=== PATIENT | female | born 1960 | race Caucasian/White ===

== ENCOUNTER 2019-01-21 20:06 | Emergency (ER) | payer MEDICAID ==
[~2019-01-21] VITALS: Ht 165.1 cm; Wt 68.2 kg
[~2019-01-21 20:06] MED LIST: NITR100C6 PO
[2019-01-21] MEDS ORDERED: normal saline 1000ML IV soln IVB ONE (20:30)
--- NOTE | 2019-01-21 20:30 | NUR ---
PT NEEDED TO URINATE AND ENCOURAGED TO USE BSC, SHE REPROTS SHE IS VERY STUBBORN AND INDEPENDANT AND WILL WALK TO BR USING WALKER AND REFUSED TO USE A BSC. REPORTS SHE USES A CANE AT HOME AND A WC AT TIMES (D/T MS). SHE REPORTED DIZZINESS WHEN AMBULATING. WAS AMBULATING WELL WITH SLOW BUT STEADY GAIT USING WALKER. UA COLLECTED, LABS DRAWN, IVF STARTED.
[2019-01-21 20:56] LABS: BASOPHILS # (AUTO) 0.1 X10'3 (0-0.2); EOSINOPHILS # (AUTO) 0.3 X10'3 (0-0.9); EOSINOPHILS % (AUTO) 2.6 % (0-6); HEMATOCRIT 43.3 % (35.0-45.0); HEMOGLOBIN 14.9 g/dl (12.0-16.0); LYMPHOCYTES # (AUTO) 3.3 X10'3 (1.1-4.8); LYMPHOCYTES % (AUTO) 34.4 % (21-51); MEAN CORPUSCULAR HEMOGLOBIN 33.3 PG (27.0-31.0); MEAN CORPUSCULAR HGB CONC 34.3 g/dL (33.0-36.5); MEAN CORPUSCULAR VOLUME 97.1 FL (78-98); MEAN PLATELET VOLUME 9.3 FL (7.4-10.4); MONOCYTES # (AUTO) 0.9 X10'3 (0-0.9); MONOCYTES % (AUTO) 8.8 % (2-12); NEUTROPHILS # (AUTO) 5.1 X10'3 (1.8-7.7); NEUTROPHILS % (AUTO) 53.2 % (42-75); PLATELET COUNT 234 X10'3 (140-440); RED BLOOD COUNT 4.46 X10'6 (4.20-5.60); RED CELL DISTRIBUTION WIDTH 13.2 % (11.5-14.5); WHITE BLOOD COUNT 9.6 X10'3 (4.5-11.0)
[2019-01-21 21:06] VITALS: BP 131/83
[2019-01-21 21:14] LABS: ALANINE AMINOTRANSFERASE 23 U/L (12-78); ALBUMIN 3.8 G/DL (3.4-5.0); ALBUMIN/GLOBULIN RATIO 1.1 (1.1-1.5); ALKALINE PHOSPHATASE 70 IU/L (46-116); ANION GAP 9 (8-16); ASPARTATE AMINO TRANSFERASE 14 U/L (10-37); BILIRUBIN,TOTAL 1.1 MG/DL (0.1-1.0); BLOOD UREA NITROGEN 4 MG/DL (7-18); BUN/CREATININE RATIO 4.7 (6.6-38.0); CALCIUM 8.7 MG/DL (8.5-10.1); CHLORIDE 101 MMOL/L (99-107); CREATININE 0.85 MG/DL (0.40-0.90); GLUCOSE 215 MG/DL (70-104); POTASSIUM 3.7 MMOL/L (3.5-5.1); SODIUM 136 MMOL/L (135-145); TOTAL CARBON DIOXIDE 26.3 MMOL/L (24-32); TOTAL PROTEIN 7.3 G/DL (6.4-8.2); eGFR 69 ML/MIN
--- NOTE | 2019-01-21 22:34 | NUR ---
pt refused to leave until er "figures out what's wrong". 3 nurses and er md have been in room to try to explain to pt that she has a rash, not emergent. pt very contrary, insists that it is not a skin condition. eventually pt ambulated on her own out of er with security standby. pt was offerred food, transportation and a [facility], refused all. states her daughter is coming to get rachelle
== END 2019-01-21 22:39 | disposition home or self-care (01) ==
LOC: ER 20:07
DX: R42 Dizziness and giddiness (principal); J45.909 Unspecified asthma, uncomplicated; E11.9 Type 2 diabetes mellitus without complications; Z90.49 Acquired absence of other specified parts of digestive tract; Z79.899 Other long term (current) drug therapy
CPT/HCPCS: 36415; 71045; 80053; 85025; 93005; 96360; 99284; J7030

== ENCOUNTER 2019-12-15 11:35 | Emergency (ER) | payer MEDICAID ==
[~2019-12-15] VITALS: Ht 152.4 cm; Wt 80.0 kg
[2019-12-15 13:38] LABS: ALANINE AMINOTRANSFERASE 28 U/L (12-78); ALBUMIN 3.9 G/DL (3.4-5.0); ALKALINE PHOSPHATASE 83 IU/L (46-116); ANION GAP 6 (8-16); ASPARTATE AMINO TRANSFERASE 15 U/L (10-37); BILIRUBIN,TOTAL 0.7 MG/DL (0.1-1.0); BLOOD UREA NITROGEN 17 MG/DL (7-18); CALCIUM 9.6 MG/DL (8.5-10.1); CHLORIDE 103 MMOL/L (99-107); CREATININE 0.74 MG/DL (0.40-0.90); GLUCOSE 185 MG/DL (70-104); POTASSIUM 4.2 MMOL/L (3.5-5.1); SODIUM 138 MMOL/L (135-145); TOTAL CARBON DIOXIDE 29.2 MMOL/L (24-32); TOTAL PROTEIN 7.9 G/DL (6.4-8.2); eGFR 81 ML/MIN
--- NOTE | 2019-12-15 13:40 | NUR ---
Pt ambulatory to the restroom to provide a urine specimen for testing.
--- NOTE | 2019-12-15 13:58 | NUR ---
Lab phoned to report the specimen for the PT, PTT and INR was clotted and needs to be recollected.
[2019-12-15 14:16] LABS: CLARITY,URINE TURBID (Clear); COLOR,URINE STRAW (Yellow); GLUCOSE, URINE NEGATIVE (Neg); KETONES,URINE NEGATIVE (Neg); LEUKOCYTE ESTERASE ,URINE SMALL (Neg); NITRITES, URINE POSITIVE (Neg); OCCULT BLOOD,URINE NEGATIVE (Neg); PROTEIN,URINE NEGATIVE (Neg); UROBILINOGEN,URINE 0.2 E.U/dL (0.2-1.0)
[2019-12-15 14:19] LABS: BASOPHILS # (AUTO) 0.1 X10'3 (0-0.2); BASOPHILS % (AUTO) 0.9 % (0-1); EOSINOPHILS # (AUTO) 0.2 X10'3 (0-0.9); EOSINOPHILS % (AUTO) 3.2 % (0-6); HEMATOCRIT 40.9 % (35.0-45.0); LYMPHOCYTES # (AUTO) 2.1 X10'3 (1.1-4.8); LYMPHOCYTES % (AUTO) 31.9 % (21-51); MEAN CORPUSCULAR HEMOGLOBIN 32.6 PG (27.0-31.0); MEAN CORPUSCULAR HGB CONC 34.1 g/dL (33.0-36.5); MEAN CORPUSCULAR VOLUME 95.7 FL (78-98); MEAN PLATELET VOLUME 8.5 FL (7.4-10.4); MONOCYTES # (AUTO) 0.4 X10'3 (0-0.9); MONOCYTES % (AUTO) 6.4 % (2-12); NEUTROPHILS # (AUTO) 3.8 X10'3 (1.8-7.7); NEUTROPHILS % (AUTO) 57.6 % (42-75); PLATELET COUNT 291 X10'3 (140-440); RED BLOOD COUNT 4.28 X10'6 (4.20-5.60); RED CELL DISTRIBUTION WIDTH 12.4 % (11.5-14.5); WHITE BLOOD COUNT 6.6 X10'3 (4.5-11.0)
[2019-12-15 14:20] LABS: UA COLLECTION TYPE CLN CATCH MIDSTREAM
[2019-12-15 14:26] LABS: MUCUS STRANDS NONE SEEN /LPF (Neg); SQUAMOUS EPITHELIAL CELL,UR MODERATE /LPF (FEW); TRANSITIONAL EPI CELLS,URINE FEW /HPF
[2019-12-15 14:27] LABS: BACTERIA,URINE 4+ /HPF (Neg); RBC,URINE 0-2 /HPF (0-2); WBC CLUMPS,URINE FEW /HPF (NEGATIVE); WBC,URINE 30-50 /HPF (0-4)
[2019-12-15 14:29] LABS: PARTIAL THROMBOPLASTIN TIME 28 SECONDS (22-32)
[2019-12-15 14:33] VITALS: BP 115/71
[2019-12-15] MEDS ORDERED: PHEN-824 PO (14:34)
[2019-12-15] MEDS ORDERED: NITR100C6 PO (14:34)
[2019-12-15] MEDS ORDERED: ketorolac tromethamine 15mg/ml inj. IM ONE (14:35)
== END 2019-12-15 15:15 | disposition home or self-care (01) ==
LOC: ER 11:36
DX: N39.0 Urinary tract infection, site not specified (principal); R51 Headache; R42 Dizziness and giddiness; R04.0 Epistaxis; J45.909 Unspecified asthma, uncomplicated; E11.9 Type 2 diabetes mellitus without complications; Z90.49 Acquired absence of other specified parts of digestive tract; Z72.89 Other problems related to lifestyle; Z79.899 Other long term (current) drug therapy; W18.39XA Other fall on same level, initial encounter; Y93.89 Activity, other specified; Y92.89 Other specified places as the place of occurrence of the external cause; Y99.8 Other external cause status
CPT/HCPCS: 36415; 70450; 80053; 81001; 85025; 85610; 85730; 87088; 96372; 99284; J1885; 87077; 87186

== ENCOUNTER 2022-01-23 10:01 | Inpatient (IN) | payer MEDICAID ==
[~2022-01-23] VITALS: Ht 154.9 cm; Wt 90.0 kg
[~2022-01-23 10:01] MED LIST changes: +PHEN-824 PO
[2022-01-23] MEDS ORDERED: normal saline 1000ML IV soln IV ONE (10:10)
--- NOTE | 2022-01-23 10:16 | NUR ---
PATIENT OFF TO CT SCAN
[2022-01-23 11:02] LABS: BASOPHILS # (AUTO) 0.1 X10'3 (0-0.2); BASOPHILS % (AUTO) 0.6 % (0-1); EOSINOPHILS # (AUTO) 0.2 X10'3 (0-0.9); EOSINOPHILS % (AUTO) 1.6 % (0-6); HEMATOCRIT 43.6 % (35.0-45.0); HEMOGLOBIN 14.7 g/dl (12.0-16.0); LYMPHOCYTES # (AUTO) 1.7 X10'3 (1.1-4.8); LYMPHOCYTES % (AUTO) 15.2 % (21-51); MEAN CORPUSCULAR HEMOGLOBIN 32.2 PG (27.0-31.0); MEAN CORPUSCULAR HGB CONC 33.8 g/dL (33.0-36.5); MEAN CORPUSCULAR VOLUME 95.2 FL (78-98); MEAN PLATELET VOLUME 9.7 FL (7.4-10.4); MONOCYTES % (AUTO) 8.8 % (2-12); NEUTROPHILS # (AUTO) 8.1 X10'3 (1.8-7.7); NEUTROPHILS % (AUTO) 73.8 % (42-75); PLATELET COUNT 230 X10'3 (140-440); RED BLOOD COUNT 4.58 X10'6 (4.20-5.60); RED CELL DISTRIBUTION WIDTH 13.1 % (11.5-14.5)
--- NOTE | 2022-01-23 11:02 | NUR ---
SPOKE TO PT'S DAUGHTER, SHEELA READ (DAUGHTER) - [phone] [address] [address]
[2022-01-23 11:33] LABS: ALANINE AMINOTRANSFERASE 19 U/L (12-78); ALBUMIN 3.2 G/DL (3.4-5.0); ALBUMIN/GLOBULIN RATIO 0.9 (1.1-1.5); ALKALINE PHOSPHATASE 109 IU/L (46-116); ANION GAP 12 (8-16); ASPARTATE AMINO TRANSFERASE 10 U/L (10-37); BILIRUBIN,TOTAL 0.8 MG/DL (0.1-1.0); BLOOD UREA NITROGEN 11 MG/DL (7-18); BUN/CREATININE RATIO 12.4 (6.6-38.0); CALCIUM 8.4 MG/DL (8.5-10.1); CHLORIDE 102 MMOL/L (99-107); CREATININE 0.89 MG/DL (0.40-0.90); GLUCOSE 338 MG/DL (70-104); MAGNESIUM 1.7 MG/DL (1.5-2.4); POTASSIUM 3.9 MMOL/L (3.5-5.1); SODIUM 139 MMOL/L (135-145); TOTAL CARBON DIOXIDE 24.8 MMOL/L (24-32); TOTAL PROTEIN 6.7 G/DL (6.4-8.2); eGFR 65 ML/MIN
[2022-01-23 11:35] LABS: ETHANOL < 0.010 GM/DL (0.0-0.010)
[2022-01-23] MEDS ORDERED: CefTRIAXone 2gm/D5W 50ml BAG 50 ML IV ONE (12:15)
[2022-01-23 12:52] LABS: CLARITY,URINE SLIGHTLY CLOUDY (Clear); COLOR,URINE YELLOW (Yellow); GLUCOSE, URINE 500 mg/dl (Neg); KETONES,URINE NEGATIVE (Neg); LEUKOCYTE ESTERASE ,URINE SMALL (Neg); NITRITES, URINE POSITIVE (Neg); OCCULT BLOOD,URINE NEGATIVE (Neg); PH,URINE 5.5 (4.8-8.0); PROTEIN,URINE NEGATIVE (Neg); UA COLLECTION TYPE NON-SPECIFIED; UROBILINOGEN,URINE 0.2 E.U/dL (0.2-1.0)
[2022-01-23 12:58] LABS: BACTERIA,URINE 4+ /HPF (Neg); RBC,URINE 0-2 /HPF (0-2); SQUAMOUS EPITHELIAL CELL,UR FEW /LPF (FEW)
[2022-01-23 13:23] LABS: URINE AMPHETAMINE SCREEN NEGATIVE (Neg); URINE BARBITUATE SCREEN NEGATIVE (Neg); URINE BENZODIAZEPINES SCREEN NEGATIVE (Neg); URINE CANNABINOID SCREEN POSITIVE (Neg); URINE COCAINE SCREEN NEGATIVE (Neg); URINE METHADONE SCREEN NEGATIVE (Neg); URINE PHENCYCLIDINE SCREEN NEGATIVE (Neg)
[2022-01-23] MEDS ORDERED: acetaminophen 325mg tablet PO PRN (13:45)
[2022-01-23] MEDS ORDERED: POTASSIUM BICARB 20meq eff tab 20 MEQ TABLET.EFF PO PRN ×2 (13:45)
[2022-01-23] MEDS ORDERED: ondansetron 4mg rapidly disintigrating tab PO PRN (13:45)
[2022-01-23] MEDS ORDERED: magnesium Cl slow-release 64mg tablet PO PRN (13:45)
[2022-01-23] MEDS ORDERED: normal saline 1000ml 1,000 ML IV SCH (13:45)
[2022-01-23] MEDS ORDERED: magnesium 4gm in 100ml NS 100 ML IV PRN (13:45)
[2022-01-23] MEDS ORDERED: magnesium 2GM in 50ml NS 50 ML IV PRN (13:45)
[2022-01-23] MEDS ORDERED: potassium CL 10mEq/100ml bag 100 ML IV PRN (13:45)
[2022-01-23] MEDS: CefTRIAXone/D5W-Rocephin 1gm 50 ML IV SCH (13:55)
[2022-01-23] MEDS ORDERED: ipratropium/albuterol 3ml nebule NEB ONE (14:15)
[2022-01-23] MEDS ORDERED: methylPREDNISolone sod succ 125mg/2ml vial IV ONE (14:15)
[2022-01-23] MEDS ORDERED: MELO-100 PO (15:10)
[2022-01-23] MEDS ORDERED: GLIM4TAB7 PO (15:10)
[2022-01-23] MEDS ORDERED: HYDR-3686 PO (15:10)
[2022-01-23] MEDS ORDERED: LORA10TA7 PO (15:10)
[2022-01-23] MEDS ORDERED: GABA300C PO (15:10)
[2022-01-23] MEDS ORDERED: LAMO100T PO (15:10)
[2022-01-23] MEDS ORDERED: ATOR40TA72 PO (15:10)
[2022-01-23] MEDS ORDERED: CITA40TA30 PO (15:10)
[2022-01-23] MEDS ORDERED: FLUT16SP26 BOTHNARES (15:10)
[2022-01-23] MEDS ORDERED: ASPI-1397 PO (15:10)
[2022-01-23 16:06] LABS: HEMOGLOBIN A1C 9.8 % (4.5-6.2)
--- NOTE | 2022-01-23 16:16 | NUR ---
PAGER ID: [phone] MESSAGE: Louise Moore [id number] A1C 9.8 would you like to start protocol? Nothing ordered. Do you want repeat lactic? last one 2.3. Not on fluids... Do you want on fluids? Please address med. rec. Imelda [phone]
[2022-01-23 16:43] VITALS: BP 129/73
[2022-01-23] MEDS ORDERED: glucagon, human recombinant 1mg kit SUBCUT PRN (16:50)
[2022-01-23] MEDS ORDERED: DEXTROSE 15 GM of carb/4 tabs (each vial/BOTTLE has 4 tablets) PO PRN ×2 (16:50)
[2022-01-23] MEDS ORDERED: MESSAGE TO PHARMACY PO ONE (16:50)
[2022-01-23] MEDS ORDERED: dextrose 50%-water 50ml dispensing syringe IV PRN ×2 (16:50)
[2022-01-23] MEDS: normal saline 1000ml 1,000 ML IV SCH (17:09)
[2022-01-23 18:00] VITALS: BP 131/75
--- NOTE | 2022-01-23 18:27 | NUR ---
Pt's home medications stored in pharmacy- Report given to Kamlesh HEARN. She is aware pt. has not been placed on aspiration precautions yet and aware that pt. has field start that needs to be replaced.
[2022-01-23] MEDS: insulin Lispro (HumaLOG) vial - multi-dose SQ SCH ×2 (18:57→22:01)
[2022-01-23] MEDS: lamoTRIgine 100mg tablet PO SCH (20:01)
[2022-01-23] MEDS: hydrOXYzine 25 MG tablet PO SCH (20:01)
[2022-01-23] MEDS: gabapentin 300mg capsule PO SCH (20:01)
[2022-01-23] MEDS: atorvastatin 20mg tablet PO SCH (20:05)
[2022-01-23] MEDS: nystatin 15 GM powder TP SCH (20:05)
[2022-01-23] MEDS: citalopram 20mg tablet PO SCH (20:06)
[2022-01-23] MEDS: K and/or MAG REPLACEMENT MC SCH (20:07)
[2022-01-23 22:00] VITALS: BP 124/79
[2022-01-23] MEDS: insulin glargine (Lantus) pen - multi-dose SQ SCH (22:00)
[2022-01-23] MEDS ORDERED: mag hydrox/Alum hydrox/simeth 30ml oral suspension PO PRN (22:15)
[2022-01-24] MEDS ORDERED: temazepam 15mg capsule PO ONE (01:15)
[2022-01-24 02:00] VITALS: BP 142/80
--- NOTE | 2022-01-24 04:50 | NUR ---
Patient fall asleep and slept the whole night after MD order sleep med, so patient does not need it.
[2022-01-24] MEDS: normal saline 1000ml 1,000 ML IV SCH ×2 (05:11→18:54)
[2022-01-24 06:00] VITALS: BP 147/76
[2022-01-24 06:22] LABS: ALBUMIN 2.7 G/DL (3.4-5.0); ANION GAP 9 (8-16); BLOOD UREA NITROGEN 14 MG/DL (7-18); BUN/CREATININE RATIO 18.4 (6.6-38.0); CHLORIDE 105 MMOL/L (99-107); CREATININE 0.76 MG/DL (0.40-0.90); GLUCOSE 281 MG/DL (70-104); MAGNESIUM 1.9 MG/DL (1.5-2.4); SODIUM 137 MMOL/L (135-145); eGFR 78 ML/MIN
[2022-01-24 06:24] LABS: POTASSIUM 4.1 MMOL/L (3.5-5.1)
[2022-01-24 06:26] LABS: BASOPHILS % (AUTO) 0.3 % (0-1); EOSINOPHILS % (AUTO) 0 % (0-6); HEMATOCRIT 41.6 % (35.0-45.0); HEMOGLOBIN 14.1 g/dl (12.0-16.0); LYMPHOCYTES # (AUTO) 1.4 X10'3 (1.1-4.8); LYMPHOCYTES % (AUTO) 11.8 % (21-51); MEAN CORPUSCULAR HEMOGLOBIN 32.4 PG (27.0-31.0); MEAN CORPUSCULAR HGB CONC 33.9 g/dL (33.0-36.5); MEAN CORPUSCULAR VOLUME 95.8 FL (78-98); MEAN PLATELET VOLUME 10.1 FL (7.4-10.4); MONOCYTES # (AUTO) 0.6 X10'3 (0-0.9); MONOCYTES % (AUTO) 4.7 % (2-12); NEUTROPHILS # (AUTO) 10.1 X10'3 (1.8-7.7); NEUTROPHILS % (AUTO) 83.2 % (42-75); PLATELET COUNT 188 X10'3 (140-440); RED BLOOD COUNT 4.34 X10'6 (4.20-5.60); RED CELL DISTRIBUTION WIDTH 13.3 % (11.5-14.5); WHITE BLOOD COUNT 12.1 X10'3 (4.5-11.0)
--- NOTE | 2022-01-24 06:50 | NUR ---
Patient in room PCU 3027. I have received report from NADIYA Whitlock and had the opportunity to ask questions and assume patient care.
[2022-01-24] MEDS ORDERED: CefTRIAXone/D5W-Rocephin 1gm 50 ML IV SCH (08:00)
[2022-01-24] MEDS: K and/or MAG REPLACEMENT MC SCH ×2 (08:00→20:08)
[2022-01-24] MEDS ORDERED: fluticasone nasal spray 16GM bottle NS SCH (08:00)
[2022-01-24] MEDS ORDERED: TYPE IN GENERIC & BRAND NAME OF PATIENT MED STRENGTH & FORM PO SCH (08:00)
[2022-01-24] MEDS ORDERED: bisacodyl 10mg suppository rectal RC PRN (08:35)
[2022-01-24] MEDS: aspirin 81mg, enteric-coated 1 TAB TABLET.DR PO SCH (09:31)
[2022-01-24] MEDS: citalopram 20mg tablet PO SCH (09:31)
[2022-01-24] MEDS: lamoTRIgine 100mg tablet PO SCH ×2 (09:31→20:18)
[2022-01-24] MEDS: loratadine 10mg tablet PO SCH (09:31)
[2022-01-24] MEDS: CefTRIAXone/D5W-Rocephin 1gm 50 ML IV SCH (09:32)
[2022-01-24] MEDS: nystatin 15 GM powder TP SCH (09:33)
[2022-01-24] MEDS: insulin Lispro (HumaLOG) vial - multi-dose SQ SCH ×4 (09:42→21:33)
[2022-01-24 10:00] VITALS: BP 140/82
[2022-01-24] MEDS ORDERED: pneumococcal 23-VAL P-sac vacc 25 mcg/0.5ml vial IMVAC ONE (12:00)
--- NOTE | 2022-01-24 12:36 | NUR ---
Noted pt with T2DM, current A1c 9.8%. Pt seen at bedside for written and verbal DM education. Pt states she usually sees a physician routinely though hasn't in about 2-3 months. Pt states she usually takes her DM medications per rx though hadn't for about a month d/t not being able to pick it up from the pharmacy, however states she got it a few days [employer]. Per pt she has not checked her BG levels in some time d/t not knowing where her glucometer is. RD encouraged pt to f/u with physician regarding current complaints that are possibly impacting DM management. Pt had a hard time staying on topic and appeared more concerned about other issues including right sided facial numbness, of which pt reports she has already d/w physician. Pt reports some difficulty chewing d/t ill fitting dentures however states current texture modification is appropriate (MM5/thin liquids) and denies any food allergies. [facility] contact information was provided and pt encouraged to reach out if needed. Will remain available. Addendum: 01/24/22 at [address] Amended: Links added.
--- NOTE | 2022-01-24 13:50 | NUR ---
DIABETIC FOOT CARE EDUCATION PROVIDED BY [facility] * Wash your feet daily with lukewarm water and soap. * Dry your feet well, especially between the toes. * Keep the skin moisturized with lotion, but do not apply it between the toes. * Check your feet for blisters, cuts or sores. * Use an emery board to shape your toenails even with the ends of your toes. * Change daily into clean, soft socks or stockings, not too big or too small. * Keep your feet warm and dry. * Preferably wear special padded socks and shoes that fit well. * Never walk barefoot indoors or outdoors. * Examine your shoes everyday for cracks, jazmyn, nails or anything that could hurt your feet. * Tell your doctor if you find any of these problems or have any concerns after examining your feet. Addendum: 01/24/22 at 1350 by Lovely Barboza LVN Amended: Links added.
[2022-01-24 14:00] VITALS: BP 119/71
[2022-01-24 18:00] VITALS: BP 145/75
--- NOTE | 2022-01-24 18:30 | NUR ---
Problems reprioritized. Patient report given, questions answered & plan of care reviewed with NADIYA Whitlock.
[2022-01-24] MEDS: magnesium hydroxide 30ml (MOM) UD suspension PO PRN (18:52)
--- NOTE | 2022-01-24 19:41 | NUR ---
.Patient in room PCU 3027. I have received report from RN Tari and had the opportunity to ask questions and assume patient care.
[2022-01-24] MEDS: atorvastatin 20mg tablet PO SCH (20:17)
[2022-01-24] MEDS: terbinafine cream 30gm TP SCH (20:18)
[2022-01-24] MEDS: gabapentin 300mg capsule PO SCH (20:18)
[2022-01-24] MEDS: hydrOXYzine 25 MG tablet PO SCH (20:18)
[2022-01-24] MEDS: insulin glargine (Lantus) pen - multi-dose SQ SCH (21:32)
[2022-01-24 22:00] VITALS: BP 140/70
[2022-01-25 02:00] VITALS: BP 130/67
[2022-01-25 06:00] VITALS: BP 153/77
--- NOTE | 2022-01-25 06:20 | NUR ---
Patient in room PCU 3027. I have received report from NADIYA Whitlock and had the opportunity to ask questions and assume patient care.
[2022-01-25 06:38] LABS: ALBUMIN 2.7 G/DL (3.4-5.0); ANION GAP 7 (8-16); BASOPHILS # (AUTO) 0.1 X10'3 (0-0.2); BASOPHILS % (AUTO) 0.8 % (0-1); BLOOD UREA NITROGEN 12 MG/DL (7-18); CALCIUM 7.8 MG/DL (8.5-10.1); CHLORIDE 107 MMOL/L (99-107); CREATININE 0.75 MG/DL (0.40-0.90); EOSINOPHILS # (AUTO) 0.2 X10'3 (0-0.9); GLUCOSE 190 MG/DL (70-104); HEMATOCRIT 41.1 % (35.0-45.0); LYMPHOCYTES # (AUTO) 2.9 X10'3 (1.1-4.8); MEAN CORPUSCULAR HEMOGLOBIN 32.5 PG (27.0-31.0); MEAN CORPUSCULAR HGB CONC 33.9 g/dL (33.0-36.5); MEAN CORPUSCULAR VOLUME 95.9 FL (78-98); MEAN PLATELET VOLUME 9.4 FL (7.4-10.4); MONOCYTES # (AUTO) 0.8 X10'3 (0-0.9); NEUTROPHILS # (AUTO) 4.6 X10'3 (1.8-7.7); NEUTROPHILS % (AUTO) 54.2 % (42-75); PLATELET COUNT 221 X10'3 (140-440); POTASSIUM 4.4 MMOL/L (3.5-5.1); RED BLOOD COUNT 4.29 X10'6 (4.20-5.60); RED CELL DISTRIBUTION WIDTH 13.5 % (11.5-14.5); SODIUM 142 MMOL/L (135-145); WHITE BLOOD COUNT 8.4 X10'3 (4.5-11.0); eGFR 79 ML/MIN
--- NOTE | 2022-01-25 07:03 | NUR ---
Problems reprioritized. Patient report given to RN Tari, questions answered & plan of care reviewed with .
[2022-01-25] MEDS: K and/or MAG REPLACEMENT MC SCH ×2 (07:41→19:11)
[2022-01-25] MEDS: terbinafine cream 30gm TP SCH ×3 (08:00→19:11)
[2022-01-25] MEDS: normal saline 1000ml 1,000 ML IV SCH ×2 (09:00→22:10)
[2022-01-25] MEDS: CefTRIAXone/D5W-Rocephin 1gm 50 ML IV SCH (09:48)
[2022-01-25] MEDS: aspirin 81mg, enteric-coated 1 TAB TABLET.DR PO SCH (09:49)
[2022-01-25] MEDS: lamoTRIgine 100mg tablet PO SCH ×2 (09:49→19:19)
[2022-01-25] MEDS: citalopram 20mg tablet PO SCH (09:49)
[2022-01-25] MEDS: loratadine 10mg tablet PO SCH (09:50)
[2022-01-25] MEDS: insulin Lispro (HumaLOG) vial - multi-dose SQ SCH (10:10)
[2022-01-25] MEDS ORDERED: HYDROmorphone inj. 0.5 MG/0.5 ML DISP.SYRIN IV PRN (10:40)
[2022-01-25] MEDS ORDERED: acetaminophen 325mg tablet PO PRN (10:40)
[2022-01-25 11:00] VITALS: BP 134/69
[2022-01-25 15:00] VITALS: BP 126/64
[2022-01-25 18:00] VITALS: BP 133/70
--- NOTE | 2022-01-25 18:45 | NUR ---
Problems reprioritized. Patient report given, questions answered & plan of care reviewed with NADIYA Rubalcava.
[2022-01-25] MEDS: gabapentin 300mg capsule PO SCH (19:19)
[2022-01-25] MEDS: atorvastatin 20mg tablet PO SCH (19:19)
[2022-01-25] MEDS: hydrOXYzine 25 MG tablet PO SCH (19:19)
[2022-01-25] MEDS: insulin glargine (Lantus) pen - multi-dose SQ SCH (21:47)
[2022-01-25 22:00] VITALS: BP 134/69
[2022-01-26 02:00] VITALS: BP 138/71
[2022-01-26 06:00] VITALS: BP 131/79
--- NOTE | 2022-01-26 06:23 | NUR ---
Problems reprioritized. Patient report given, questions answered & plan of care reviewed with Tari HEARN. Addendum: 01/26/22 at 0624 by Gini Burt RN Amended: Links added.
--- NOTE | 2022-01-26 06:30 | NUR ---
Patient in room PCU 3027. I have received report from NADIYA Rubalcava and had the opportunity to ask questions and assume patient care.
[2022-01-26 06:36] LABS: BASOPHILS % (AUTO) 0.5 % (0-1); EOSINOPHILS # (AUTO) 0.2 X10'3 (0-0.9); EOSINOPHILS % (AUTO) 3.6 % (0-6); HEMATOCRIT 39.6 % (35.0-45.0); HEMOGLOBIN 13.4 g/dl (12.0-16.0); LYMPHOCYTES # (AUTO) 2.3 X10'3 (1.1-4.8); LYMPHOCYTES % (AUTO) 38.4 % (21-51); MEAN CORPUSCULAR HEMOGLOBIN 32.5 PG (27.0-31.0); MEAN CORPUSCULAR HGB CONC 33.8 g/dL (33.0-36.5); MEAN CORPUSCULAR VOLUME 96.1 FL (78-98); MEAN PLATELET VOLUME 9.2 FL (7.4-10.4); MONOCYTES # (AUTO) 0.6 X10'3 (0-0.9); MONOCYTES % (AUTO) 10.1 % (2-12); NEUTROPHILS # (AUTO) 2.9 X10'3 (1.8-7.7); NEUTROPHILS % (AUTO) 47.4 % (42-75); PLATELET COUNT 209 X10'3 (140-440); RED BLOOD COUNT 4.12 X10'6 (4.20-5.60); RED CELL DISTRIBUTION WIDTH 13.3 % (11.5-14.5)
[2022-01-26 07:09] LABS: ALBUMIN 2.6 G/DL (3.4-5.0); ANION GAP 7 (8-16); BLOOD UREA NITROGEN 8 MG/DL (7-18); BUN/CREATININE RATIO 11.8 (6.6-38.0); CHLORIDE 106 MMOL/L (99-107); CREATININE 0.68 MG/DL (0.40-0.90); GLUCOSE 147 MG/DL (70-104); MAGNESIUM 1.8 MG/DL (1.5-2.4); POTASSIUM 4.1 MMOL/L (3.5-5.1); SODIUM 141 MMOL/L (135-145); TOTAL CARBON DIOXIDE 28.3 MMOL/L (24-32); eGFR 89 ML/MIN
[2022-01-26] MEDS: K and/or MAG REPLACEMENT MC SCH ×2 (09:05→20:00)
[2022-01-26] MEDS: citalopram 20mg tablet PO SCH (09:42)
[2022-01-26] MEDS: magnesium hydroxide 30ml (MOM) UD suspension PO PRN (09:42)
[2022-01-26] MEDS: aspirin 81mg, enteric-coated 1 TAB TABLET.DR PO SCH (09:42)
[2022-01-26] MEDS: lamoTRIgine 100mg tablet PO SCH ×2 (09:42→22:39)
[2022-01-26] MEDS: loratadine 10mg tablet PO SCH (09:42)
[2022-01-26] MEDS: CefTRIAXone/D5W-Rocephin 1gm 50 ML IV SCH (09:43)
[2022-01-26] MEDS: terbinafine cream 30gm TP SCH ×2 (09:43→22:38)
[2022-01-26] MEDS: insulin Lispro (HumaLOG) vial - multi-dose SQ SCH ×2 (09:58→13:53)
[2022-01-26 11:00] VITALS: BP 146/80
[2022-01-26] MEDS: normal saline 1000ml 1,000 ML IV SCH ×3 (11:30→22:42)
[2022-01-26] MEDS: HYDROcodone/acetaminophen 5mg/325mg tablet PO PRN (11:48)
[2022-01-26 15:00] VITALS: BP 125/69
[2022-01-26 18:00] VITALS: BP 136/76
--- NOTE | 2022-01-26 19:20 | NUR ---
Problems reprioritized. Patient report given, questions answered & plan of care reviewed with NADIYA Foster.
[2022-01-26 22:00] VITALS: BP 150/84
[2022-01-26] MEDS: insulin glargine (Lantus) pen - multi-dose SQ SCH (22:36)
[2022-01-26] MEDS: atorvastatin 20mg tablet PO SCH (22:38)
[2022-01-26] MEDS: hydrOXYzine 25 MG tablet PO SCH (22:39)
[2022-01-26] MEDS: gabapentin 300mg capsule PO SCH (22:39)
[2022-01-27 02:00] VITALS: BP 136/79
[2022-01-27 06:02] LABS: BASOPHILS % (AUTO) 0.8 % (0-1); EOSINOPHILS # (AUTO) 0.2 X10'3 (0-0.9); EOSINOPHILS % (AUTO) 4.1 % (0-6); HEMATOCRIT 40.7 % (35.0-45.0); HEMOGLOBIN 13.8 g/dl (12.0-16.0); LYMPHOCYTES # (AUTO) 2.1 X10'3 (1.1-4.8); LYMPHOCYTES % (AUTO) 36.7 % (21-51); MEAN CORPUSCULAR HEMOGLOBIN 32.5 PG (27.0-31.0); MEAN CORPUSCULAR HGB CONC 33.9 g/dL (33.0-36.5); MEAN PLATELET VOLUME 8.7 FL (7.4-10.4); MONOCYTES # (AUTO) 0.5 X10'3 (0-0.9); MONOCYTES % (AUTO) 8.7 % (2-12); NEUTROPHILS # (AUTO) 2.8 X10'3 (1.8-7.7); NEUTROPHILS % (AUTO) 49.7 % (42-75); PLATELET COUNT 227 X10'3 (140-440); RED BLOOD COUNT 4.24 X10'6 (4.20-5.60); WHITE BLOOD COUNT 5.6 X10'3 (4.5-11.0)
[2022-01-27 06:20] LABS: ALBUMIN 2.7 G/DL (3.4-5.0); ANION GAP 6 (8-16); BLOOD UREA NITROGEN 7 MG/DL (7-18); BUN/CREATININE RATIO 10.8 (6.6-38.0); CALCIUM 8.1 MG/DL (8.5-10.1); CHLORIDE 107 MMOL/L (99-107); CREATININE 0.65 MG/DL (0.40-0.90); GLUCOSE 141 MG/DL (70-104); MAGNESIUM 2.1 MG/DL (1.5-2.4); POTASSIUM 3.9 MMOL/L (3.5-5.1); SODIUM 141 MMOL/L (135-145); TOTAL CARBON DIOXIDE 27.8 MMOL/L (24-32); eGFR > 90 ML/MIN
--- NOTE | 2022-01-27 06:50 | NUR ---
Patient in room PCU 3027. I have received report from NADIYA Foster and had the opportunity to ask questions and assume patient care.
--- NOTE | 2022-01-27 06:53 | NUR ---
Problems reprioritized. Patient report given, questions answered & plan of care reviewed with NADIYA Gotti.
[2022-01-27 07:03] VITALS: BP 136/79
[2022-01-27] MEDS: aspirin 81mg, enteric-coated 1 TAB TABLET.DR PO SCH (07:26)
[2022-01-27] MEDS: CefTRIAXone/D5W-Rocephin 1gm 50 ML IV SCH (07:26)
[2022-01-27] MEDS: loratadine 10mg tablet PO SCH (07:26)
[2022-01-27] MEDS: citalopram 20mg tablet PO SCH (07:26)
[2022-01-27] MEDS: lamoTRIgine 100mg tablet PO SCH ×2 (07:26→19:34)
[2022-01-27] MEDS: terbinafine cream 30gm TP SCH ×2 (07:28→19:38)
[2022-01-27] MEDS: K and/or MAG REPLACEMENT MC SCH ×2 (08:00→19:54)
[2022-01-27] MEDS: insulin Lispro (HumaLOG) vial - multi-dose SQ SCH ×3 (09:14→19:33)
[2022-01-27 11:00] VITALS: BP 136/70
[2022-01-27 15:00] VITALS: BP 132/81
[2022-01-27] MEDS: normal saline 1000ml 1,000 ML IV SCH (15:34)
[2022-01-27] MEDS: HYDROcodone/acetaminophen 5mg/325mg tablet PO PRN (15:57)
[2022-01-27 18:00] VITALS: BP 115/69
--- NOTE | 2022-01-27 18:09 | NUR ---
Problems reprioritized. Patient report given, questions answered & plan of care reviewed with KEIRY Maki.
--- NOTE | 2022-01-27 18:30 | NUR ---
Patient in room PCU 3027. I have received report from kary and had the opportunity to ask questions and assume patient care.
[2022-01-27] MEDS: insulin glargine (Lantus) pen - multi-dose SQ SCH (20:43)
[2022-01-27] MEDS: gabapentin 300mg capsule PO SCH (20:44)
[2022-01-27] MEDS: hydrOXYzine 25 MG tablet PO SCH (20:44)
[2022-01-27] MEDS: atorvastatin 20mg tablet PO SCH (20:45)
[2022-01-27 22:00] VITALS: BP 114/93
[2022-01-28 02:00] VITALS: BP 139/75
[2022-01-28 06:00] VITALS: BP 149/85
--- NOTE | 2022-01-28 06:17 | NUR ---
Problems reprioritized. Patient report given, questions answered & plan of care reviewed with
[2022-01-28 07:09] LABS: BASOPHILS % (AUTO) 0.6 % (0-1); EOSINOPHILS # (AUTO) 0.2 X10'3 (0-0.9); EOSINOPHILS % (AUTO) 3.5 % (0-6); HEMATOCRIT 41.3 % (35.0-45.0); HEMOGLOBIN 14.1 g/dl (12.0-16.0); LYMPHOCYTES % (AUTO) 28.7 % (21-51); MEAN CORPUSCULAR HEMOGLOBIN 32.8 PG (27.0-31.0); MEAN CORPUSCULAR HGB CONC 34.2 g/dL (33.0-36.5); MEAN CORPUSCULAR VOLUME 95.9 FL (78-98); MEAN PLATELET VOLUME 8.8 FL (7.4-10.4); MONOCYTES # (AUTO) 0.6 X10'3 (0-0.9); MONOCYTES % (AUTO) 9.3 % (2-12); NEUTROPHILS % (AUTO) 57.9 % (42-75); PLATELET COUNT 247 X10'3 (140-440); RED BLOOD COUNT 4.31 X10'6 (4.20-5.60); RED CELL DISTRIBUTION WIDTH 13.2 % (11.5-14.5)
--- NOTE | 2022-01-28 07:10 | NUR ---
Patient in room PCU 3024K. I have received report from Glynn and had the opportunity to ask questions and assume patient care.
[2022-01-28 07:34] LABS: ALBUMIN 2.9 G/DL (3.4-5.0); ANION GAP 7 (8-16); BLOOD UREA NITROGEN 7 MG/DL (7-18); BUN/CREATININE RATIO 9.6 (6.6-38.0); CALCIUM 8.4 MG/DL (8.5-10.1); CHLORIDE 106 MMOL/L (99-107); CREATININE 0.73 MG/DL (0.40-0.90); GLUCOSE 112 MG/DL (70-104); POTASSIUM 3.9 MMOL/L (3.5-5.1); SODIUM 139 MMOL/L (135-145); TOTAL CARBON DIOXIDE 26.1 MMOL/L (24-32); eGFR 82 ML/MIN
[2022-01-28] MEDS: K and/or MAG REPLACEMENT MC SCH (08:00)
--- NOTE | 2022-01-28 09:34 | NUR ---
Initial: Pt admitted w/ acute nondisplaced fracture of right distal malleoli and UTI per EMR. Currently on MM5/Carb control diet w/ avg intake 52% of meals partially meeting needs. Pt could benefit from Glucerna BID to assist w/ meeting needs. Pt feels MM5 diet is appropriate for them given previous RD discussion w/ pt. LBM 01/25 receiving PRN bowel care. Will continue to monitor. Recs: 1. Continue MM5/Carb control diet as tolerated 2. Glucerna BIDBD; pending MD verification 3. Bowel care per rx 4. Weekly wts Addendum: 01/28/22 at [address] Amended: Links added.
[2022-01-28] MEDS: aspirin 81mg, enteric-coated 1 TAB TABLET.DR PO SCH (09:53)
[2022-01-28] MEDS: citalopram 20mg tablet PO SCH (09:54)
[2022-01-28] MEDS: lamoTRIgine 100mg tablet PO SCH (09:54)
[2022-01-28] MEDS: loratadine 10mg tablet PO SCH (09:54)
[2022-01-28] MEDS: CefTRIAXone/D5W-Rocephin 1gm 50 ML IV SCH (09:55)
[2022-01-28] MEDS: insulin Lispro (HumaLOG) vial - multi-dose SQ SCH (10:24)
[2022-01-28 11:00] VITALS: BP 113/76
[2022-01-28] MEDS ORDERED: AMOX-580 PO (11:25)
[2022-01-28] MEDS ORDERED: ACET-1008 PO (11:26)
--- NOTE | 2022-01-28 12:42 | NUR ---
BLOOD SUGAR 67, PAGED DR, WILL TREAT PER PROTOCOL PAGER ID: [id number] MESSAGE: KIMI [id number]: BRIDGETT BLOOD SUGAR 67, TREATING PER PROTOCOL. THANK YOU GABRIEL [phone]
[2022-01-28] MEDS: HYDROcodone/acetaminophen 5mg/325mg tablet PO PRN (14:34)
[2022-01-28] MEDS ORDERED: NUT.TX.GLUC.INTOLER,LAC-FR,SOY (GLUCERNA) 237 ML PO SCH (17:30)
== END 2022-01-28 14:40 | disposition home or self-care (01) | DRG 342 ==
LOC: ER 10:01 → ED HOLD 13:47 → PCU 3S 16:19
PROVIDERS: ADMIT Internal Medicine; ATTEND Internal Medicine
DX: S82.891A Other fracture of right lower leg, initial encounter for closed fracture (principal); G93.41 Metabolic encephalopathy; N30.01 Acute cystitis with hematuria; B96.20 Unspecified Escherichia coli [E. coli] as the cause of diseases classified elsewhere; E11.65 Type 2 diabetes mellitus with hyperglycemia; B95.7 Other staphylococcus as the cause of diseases classified elsewhere; J45.909 Unspecified asthma, uncomplicated; K62.5 Hemorrhage of anus and rectum; W18.11XA Fall from or off toilet without subsequent striking against object, initial encounter; R29.6 Repeated falls; Z90.49 Acquired absence of other specified parts of digestive tract; Z91.14 Patient's other noncompliance with medication regimen; Z28.21 Immunization not carried out because of patient refusal; Y93.89 Activity, other specified; Y92.091 Bathroom in other non-institutional residence as the place of occurrence of the external cause; Z79.899 Other long term (current) drug therapy
CPT/HCPCS: 36415; 70450; 71045; 73610; 73721; 80048; 80053; 80305; 80320; 81001; 82140; 82948; 83036; 83605; 83735; 84145; 85025; 87040; 87077; 87081; 87088; 87186; 90732; 93005; 96365; 97116; 97161; 97530; 97535; 97760; 99285; A4333; A6258; G0378; J0696; J1170; J1815; J2930; J3490; J7030; Q0177